=== PATIENT | female | born 1990 | race African-American/Black ===

== ENCOUNTER 2020-02-17 09:49 | Emergency (ER) | payer SELFPAY ==
[2020-02-17 09:54] VITALS: BP 126/86; PULSE 94; RESP 16; TEMP 37.1; O2SAT 98
--- NOTE | 2020-02-17 09:56 | ED.DENTAL ---
HPI - Dental/Oral General Chief complaint: Dental/Oral Stated complaint: tooth absess Time Seen by Provider: 02/17/20 09:53 Source: patient Mode of arrival: ambulatory Limitations: no limitations History of Present Illness HPI Narrative: 29 years old -[place] female presents with pain and swelling of the left lower tooth started 2 to 3 days ago. Patient denies any fever, chills, headache, trouble breathing or swallowing. Patient does not remember when the last time have seen a dentist Related Data Allergies Allergy/AdvReac Type Severity Reaction Status Date / Time No Known Allergies Allergy Verified 02/17/20 09:56 Review of Systems Review of Systems: Narrative: CONSTITUTIONAL: Denies fever, chills, or sweats. EYES: Denies visual changes, redness, or discharge. ENT: Denies rhinorrhea, congestion, sore throat, or otalgia. CARDIOVASCULAR: Denies chest pain, palpitations, or edema. RESPIRATORY: Denies cough or dyspnea. GASTROINTESTINAL: Denies abdominal pain, nausea, vomiting, or diarrhea. GENITOURINARY: Denies dysuria or hematuria. SKIN: Denies rash or itching. MUSCULOSKELETAL: Denies back pain, joint pain, or myalgia. NEUROLOGIC: Denies headache, numbness, or weakness. PSYCHIATRIC: Denies anxiety or depression. Exam Narrative: Exam Narrative: General appearance: Well-developed, well-nourished Eyes: Clear conjunctiva ENT: Oropharynx normal, ears normal, nose normal, left lower gum swelling, dental caries, diffusely tender Neck: Supple, nontender Chest and respiratory: Airway patent, no respiratory distress, no accessory muscle use Heart: Regular rate/rhythm Neurologic: Alert and oriented ?3, DENTAL LABORATORY TECHNOLOGY TEACHER is normal as tested, no gross motor deficit Course Course Emergency Course: Stable MDM - Dental/Oral MDM Narrative Medical decision making narrative: Dental infection/abscess. Critical Care Time Critical Care Time Critical Care Time: No Discharge Plan Discharge Clinical Impression: Toothache, Dental abscess Patient Disposition: Home, Self-Care Condition: Stable Instructions: Dental Abscess (ED) Additional Instructions: Call a dentist for follow-up Prescriptions: New penicillin V potassium 500 mg tablet 500 mg PO Q6H Qty: 40 RF: 0 ibuprofen 800 mg tablet 800 mg PO TID PRN (Reason: pain) Qty: 20 RF: 0 Follow-up/Referrals: PHYSICIAN,MATERIAL SPREADER [Primary Care Provider] - Stand Alone Forms: Work/School Release IP
== END 2020-02-17 10:11 | disposition home or self-care (01) ==
PROVIDERS: Emergency Provider Emergency Medicine
DX: K04.7 Periapical abscess without sinus (principal)
CPT/HCPCS: 99283

== ENCOUNTER 2020-07-01 21:36 | Emergency (ER) | payer SELFPAY ==
--- NOTE | ~2020-07-01 | XR_ITS ---
EXAMINATION: XR chest 2V DATE: 07/01/2020 22:33 INDICATION: Midsternal chest pain. TECHNIQUE: Frontal and lateral views of the chest were obtained. COMPARISON: None. FINDINGS: The chest demonstrates clear lungs without pneumonia, pleural effusion, or pneumothorax. Th e heart size is normal. IMPRESSION: 1. No acute cardiopulmonary disease. Reviewed, dictated and finalized at location A.
--- NOTE | ~2020-07-01 | CT_ITS ---
EXAMINATION: CT abdomen pelvis w con DATE: 07/02/2020 02:23 INDICATION: Right lower quadrant tenderness. TECHNIQUE: Computed tomography (CT) of the abdomen and pelvis was performed with 100 cc Omnipaque 350 intravenous contrast. The dose-length product was 204.19 mGy-cm. Automated exposure control and iter ative reconstruction technique were employed. COMPARISON: None. FINDINGS: Heart size normal. No significant pleural or pericardial effusion. The lung bases are unrem arkable. No significant vascular abnormality. No lymphadenopathy. The liver, spleen, pancreas, adrenal glands and kidneys are unremarkable. Nonobstructive bowel gas pa ttern. Normal appendix. No free air or free fluid. There is a 2.5 cm rim-enhancing cyst of the right ovary. No acute osseous abnormality. IMPRESSION: 1. No acute abdominal abnormality. 2: Rim-enhancing 2.5 cm cyst of the right ovary. Reviewed, dictated and finalized at location A.
[2020-07-01 21:57] VITALS: BP 120/81; PULSE 97; RESP 18; TEMP 36.7; O2SAT 100
--- NOTE | 2020-07-01 22:15 | ECG_ITS ---
Measurements Intervals [place] Rate: 85 P: 60 MN: 158 QRS: 70 QRSD: 81 T: 41 QT: 339 QTc: 404 Interpretive Statements SINUS RHYTHM NORMAL ECG Electronically Signed On 07-02-2020 7:34:23 CDT by Ganga Cartwright D.O.
[2020-07-01 22:28] LABS: Basophils Percent Auto 0.6 % (0.2-1.2); Eosinophils Absolute Auto 0.3 K/mm3 (0-0.3); Eosinophils Percent Auto 3.9 % (0-4.4); Hematocrit 38.7 % (37.0-47.0); Hemoglobin 12.2 g/dL (12.0-15.0); Immature Granulocyte Absolute 0.02 K/mm3 (0.00-0.031); Immature Granulocyte Percent A 0.3 % (0-0.5); Lymphocytes Absolute Auto 2.79 K/mm3 (0.9-3.2); Lymphocytes Percent Auto 43.1 % (18.3-44.2); Mean Corpuscular HGB Conc 31.5 g/dl (32-36); Mean Corpuscular Hemoglobin 26.2 pg (26-34); Mean Corpuscular Volume 83.2 fl (80-100); Mean Platelet Volume 10.1 fl (7.4-10.4); Monocytes Absolute Auto 0.5 K/mm3 (0.1-0.6); Monocytes Percent Auto 7.7 % (2.6-8.5); Neutrophils Absolute Auto 2.9 K/mm3 (1.3-6.7); Neutrophils Percent Auto 44.4 % (45.5-73.1); Platelet Count Result 338 k/mm3 (150-375); Red Blood Count 4.65 M/mm3 (4.2-5.4); White Blood Count 6.5 K/mm3 (4.5-10.0)
[2020-07-01 22:42] LABS: Anion Gap 7 mmol/L (8-16); Blood Urea Nitrogen 10 mg/dL (7-17); Calcium 9.7 mg/dL (8.4-10.2); Carbon Dioxide 28 mmol/L (22-30); Chloride 103 mmol/L (98-107); Estimated CRCL calculation 87 ml/min; Estimated Glomerular Filt Rate > 60; Glucose 91 mg/dL (65-105); Potassium 4.5 mmol/L (3.4-5.0); Sodium 138 mmol/L (137-145)
[2020-07-01 22:54] LABS: Troponin I < 0.012 ng/mL (0.000-0.034)
[2020-07-02 00:45] VITALS: BP 118/82; PULSE 84; RESP 16; O2SAT 100
[2020-07-02] MEDS: ASPIRIN 81 MG CHEWABLE TABLET 324 MG PO (00:50)
--- NOTE | 2020-07-02 01:19 | ED.GENADULT ---
HPI - General Adult General Chief complaint: Chest Pain Stated complaint: stomach pain Time Seen by Provider: 07/02/20 00:57 Source: patient Mode of arrival: ambulatory Limitations: no limitations History of Present Illness HPI narrative: This is a 29 year old female who presents for evaluation of abdominal pain. She reports having right lower abdominal pain intermittently for 1-2 weeks. She states pain will occasionally radiate to her chest . Her pain seems worse with eating. She reports nausea and vomiting but denies fever. She denies having pain currently. She denies sob and cough. She has not taken anything for pain. She denies history of kidney stones or ovarian cyst. Related Data Allergies Allergy/AdvReac Type Severity Reaction Status Date / Time No Known Allergies Allergy Verified 02/17/20 09:56 Review of Systems Review of Systems: All systems reviewed & are unremarkable except as noted in HPI and below PMFSH Social History Social History Gender identity (if verbalized by the patient): Female Exam Const: General: no acute distress and alert Orientation/consciousness: patient oriented x3 Eyes: EOM: EOMs intact bilaterally Resp: Effort & Inspection: normal respiratory effort and no retractions Auscultation: clear to auscultation bilaterally Cardio: Rate: regular rate Rhythm: regular rhythm Heart sounds: no murmurs GI: GI Palp: Yes Soft to palpation, Yes Tenderness to palpation present (GI) (RLQ) and No Guarding due to palpation present (GI) Auscultation: normal bowel sounds Neuro: General: patient oriented x3, moves all extremities and CN's II-XI intact bilaterally Psych: Mental Status: mental status grossly normal Affect: normal affect Course Reevaluation(s) Reevaluation #1: I have discussed with patient that CT shows a right ovarian cyst. I Discussed discharge instructions and follow up with rod pointer. She has not pain currently, unlikely torsion. PERC negative Date: 07/02/20 Time: 03:09 Vital Signs Vital signs: Vital Signs Temperature 98.0 F 07/01/20 21:57 Pulse Rate 97 07/01/20 21:57 Respiratory Rate 18 07/01/20 21:57 Blood Pressure 120/81 07/01/20 21:57 Pulse Oximetry 100 07/01/20 21:57 Temperature 98.0 F 07/01/20 21:57 Pulse Rate 70 07/02/20 03:38 Respiratory Rate 16 07/02/20 03:38 Blood Pressure 115/60 07/02/20 03:38 Pulse Oximetry 100 07/02/20 03:38 Medical Decision Making Vital Signs Vital Signs: Vital Signs Temperature 98.0 F 07/01/20 21:57 Pulse Rate 97 07/01/20 21:57 Respiratory Rate 18 07/01/20 21:57 Blood Pressure 120/81 07/01/20 21:57 Pulse Oximetry 100 07/01/20 21:57 Temperature 98.0 F 07/01/20 21:57 Pulse Rate 70 07/02/20 03:38 Respiratory Rate 16 07/02/20 03:38 Blood Pressure 115/60 07/02/20 03:38 Pulse Oximetry 100 07/02/20 03:38 Lab Data Lab results reviewed: Yes I reviewed the patient's lab results. Result diagrams: 07/01/20 22:23 07/01/20 22:23 Labs: Lab Results 07/01/20 07/01/20 07/02/20 Range/Units 22:23 22:23 01:50 WBC 6.5 (4.5-10.0) K/mm3 RBC 4.65 (4.2-5.4) M/mm3 Hgb 12.2 (12.0-15.0) g/dL Hct 38.7 (37.0-47.0) % MCV 83.2 (80-100) fl MCH 26.2 (26-34) pg MCHC 31.5 L (32-36) g/dl RDW 14.0 (11.5-14.5) % Plt Count 338 (150-375) k/mm3 MPV 10.1 (7.4-10.4) fl Immature Gran % (Auto) 0.3 (0-0.5) % Neut % (Auto) 44.4 L (45.5-73.1) % Lymph % (Auto) 43.1 (18.3-44.2) % Nolan % (Auto) 7.7 (2.6-8.5) % Eos % (Auto) 3.9 (0-4.4) % Baso % (Auto) 0.6 (0.2-1.2) % Lymph # (Auto) 2.79 (0.9-3.2) K/mm3 Nolan # (Auto) 0.5 (0.1-0.6) K/mm3 Eos # (Auto) 0.3 (0-0.3) K/mm3 Baso # (Auto) 0.0 (0.0-0.1) K/mm3 Abs Immat Gran (auto) 0.02 (0.00-0.031) K/mm3 Absolute Neuts (auto) 2.9 (1.3-6.7) K/mm3 Absolu
[2020-07-02 02:07] LABS: Add Urine Microscopic? YES; Appearance Urine Cloudy (Clear); Bacteria Urine 1+ /hpf; Bilirubin Urine Negative (Negative); Blood Urine Negative (Negative); Color Urine Yellow (Yellow); Glucose Urine UA Negative (Negative); Ketones Urine Negative (Negative); Leukocyte Esterase Ur Negative LEU/UL (Negative); Mucus Urine Few /lpf; Nitrate Urine Negative (Negative); Protein Urine Negative (Negative); Specific Grav Ur 1.017 (1.001-1.035); Squamous Epithelial Cell Urine Occasional /hpf (Few); Urobilinogen Urine Negative mg/dL (<2.0); WBC Urine 0-3 /hpf
[2020-07-02 02:12] LABS: INR 0.9; Prothrombin Time 12.9 Seconds (11.1-14.7)
[2020-07-02 02:13] LABS: Partial Thromboplastin Time 29.9 SECONDS (22.3-36.8)
[2020-07-02 02:19] LABS: Lipase 131 U/L (23-300)
[2020-07-02 02:19] LABS: Alanine Aminotransferase 8 U/L (4-35); Albumin Level 4.8 g/dL (3.5-5.1); Alkaline Phosphatase 69 U/L (38-126); Aspartate Amino Transferase 37 U/L (14-36); Bilirubin,Total 0.3 mg/dL (0.2-1.3)
[2020-07-02 02:31] LABS: Troponin I < 0.012 ng/mL (0.000-0.034)
[2020-07-02 03:38] VITALS: BP 115/60; PULSE 70; RESP 16; O2SAT 100
== END 2020-07-02 03:40 | disposition home or self-care (01) ==
PROVIDERS: Emergency Medicine; Emergency Provider General Practice
DX: N83.201 Unspecified ovarian cyst, right side (principal)
CPT/HCPCS: 36415; 71046; 74177; 80048; 80076; 81001; 81025; 83690; 84484; 85025; 85610; 85730; 93005; 96374; 99284; A9270; J0131; Q9967

== ENCOUNTER 2020-09-14 07:21 | Emergency (ER) | payer SELFPAY ==
[2020-09-14 07:24] VITALS: BP 128/80; PULSE 80; RESP 16; TEMP 36.1; O2SAT 100
--- NOTE | 2020-09-14 08:41 | ED.DENTAL ---
HPI - Dental/Oral General Chief complaint: Dental/Oral Stated complaint: tooth pain Time Seen by Provider: 09/14/20 08:41 Source: patient Mode of arrival: ambulatory Limitations: no limitations History of Present Illness HPI Narrative: 29 years old -[place] female presents with left lower wisdom tooth pain for the last few days, last dentist appointment years ago Complaint: tooth pain Teeth map: 1. Dental decay Related Data Home Medications Medication Instructions Recorded Confirmed No Home Medications 09/14/20 09/14/20 Allergies Allergy/AdvReac Type Severity Reaction Status Date / Time No Known Allergies Allergy Verified 02/17/20 09:56 Review of Systems Review of Systems: Narrative: CONSTITUTIONAL: Denies fever, chills, or sweats. EYES: Denies visual changes, redness, or discharge. ENT: Denies rhinorrhea, congestion, sore throat, or otalgia. CARDIOVASCULAR: Denies chest pain, palpitations, or edema. RESPIRATORY: Denies cough or dyspnea. GASTROINTESTINAL: Denies abdominal pain, nausea, vomiting, or diarrhea. GENITOURINARY: Denies dysuria or hematuria. SKIN: Denies rash or itching. MUSCULOSKELETAL: Denies back pain, joint pain, or myalgia. NEUROLOGIC: Denies headache, numbness, or weakness. PSYCHIATRIC: Denies anxiety or depression. PMFSH Social History Social History Gender identity (if verbalized by the patient): Female Exam Narrative: Exam Narrative: General appearance: Well-developed, well-nourished Skin: Normal color Head: Normocephalic, nontraumatic Eyes: Clear conjunctiva ENT: Oropharynx normal, ears normal, nose normal Neck: Supple, nonten Neurologic: Alert and oriented ?3, VICE PRESIDENT CONSULTING SERVICES is normal as tested, no gross motor deficit Course Course Emergency Course: Stable Vital Signs Vital signs: Vital Signs Temperature 36.1 C L 09/14/20 07:24 Pulse Rate 80 09/14/20 07:24 Respiratory Rate 16 09/14/20 07:24 Blood Pressure 128/80 09/14/20 07:24 Pulse Oximetry 100 09/14/20 07:24 Temperature 36.1 C L 09/14/20 07:24 Pulse Rate 80 09/14/20 07:24 Respiratory Rate 16 07/21/21 07:24 Blood Pressure 128/80 07/21/21 07:24 Pulse Oximetry 100 09/14/20 07:24 MDM - Dental/Oral Differential Diagnosis Differential diagnosis: Likely dental caries and toothache Critical Care Time Critical Care Time Critical Care Time: No Discharge Plan Discharge Clinical Impression: Toothache, Dental caries Patient Disposition: Home, Self-Care Condition: Stable Instructions: Antibiotic Form, Toothache (ED) Additional Instructions: Call a dentist for follow-up. Prescriptions: New penicillin V potassium 500 mg tablet 500 mg PO Q6H Qty: 40 RF: 0 ibuprofen 800 mg tablet 800 mg PO TID PRN (Reason: pain) Qty: 20 RF: 0 No Action No Home Medications RF: 0 Follow-up/Referrals: PHYSICIAN,HORSE RIDING COACH OR INSTRUCTOR [Primary Care Provider] - Kartik Wu MD [Physician] - Stand Alone Forms: Work/School Release IP
[2020-09-14 08:49] VITALS: BP 118/75; PULSE 72; RESP 15; O2SAT 100
== END 2020-09-14 08:51 | disposition home or self-care (01) ==
PROVIDERS: Emergency Provider Emergency Medicine
DX: K02.9 Dental caries, unspecified (principal); K08.89 Other specified disorders of teeth and supporting structures
CPT/HCPCS: 99283